=== PATIENT | male | born 1935 | race Two or more races ===

== ENCOUNTER 2022-10-07 08:44 | Emergency (ER) | payer MEDICARE, OTHER ==
[~2022-10-07] VITALS: Ht 167.6 cm; Wt 72.6 kg
--- NOTE | 2022-10-07 08:55 | NUR ---
RECEIVED PT 87 YRS MALE WALKING IN C/O TRIP AND FELL C/O PAIN ON RT GEM NO DIFFORMITY AND WANDA
--- NOTE | 2022-10-07 09:10 | NUR ---
SEEN BY DR. ALAMO
--- NOTE | 2022-10-07 09:12 | NUR ---
X RAY DONE AT BED SIDE
--- NOTE | 2022-10-07 09:37 | NUR ---
Patient discharged to home in stable condition. Written and verbal after care instructions given. Patient verbalizes understanding of instruction.
[2022-10-07 09:48] VITALS: BP 160/108
== END 2022-10-07 09:49 | disposition home or self-care (01) ==
LOC: ER 08:56
DX: S80.01XA Contusion of right knee, initial encounter (principal); I10 Essential (primary) hypertension; W01.0XXA Fall on same level from slipping, tripping and stumbling without subsequent striking against object, initial encounter; Y93.89 Activity, other specified; Y92.89 Other specified places as the place of occurrence of the external cause; Y99.8 Other external cause status
CPT/HCPCS: 73564-TC